=== PATIENT | male | born 1990 | race African-American/Black ===

== ENCOUNTER 2019-05-26 02:15 | Observation (INO) | payer OTHER ==
[2019-05-26] MEDS ORDERED: Acetaminophen 325 MG TAB PO PRN (03:13)
[2019-05-26] MEDS ORDERED: Acetaminophen 650 MG Suppository PR PRN (03:13)
[2019-05-26 03:36] VITALS: BMI 24.3
--- NOTE | 2019-05-26 03:55 | HP ---
CHIEF COMPLAINT: Altered mentation. The patient is a transfer from [facility] for Neurology consultation. 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 History obtained from the mother at the bedside. The patient has been getting agitated over the last 1 week and has not been sleeping well. Over the last 24 hours, his symptoms got worsen. There is no fever or chills reported. No recent fall or injuries reported. He is compliant with all of his medications. He is followed by a psychiatrist at [place]. In the emergency room, his vital signs showed temperature of 98.4, respirations of 18, pulse rate of 106, with blood pressure of 173/60 with O2 saturation 99% on room air. He received multiple medications including Ativan 2 mg IM, Benadryl 50 mg IM, Haldol 5 mg IM, Ativan 1 mg IV, Geodon 20 mg IM, repeat Ativan 1 mg IV, fentanyl 50 mcg IV with a repeat dose of 50 mcg IV within 1 hour, trazodone 50 mg, repeat dose of Ativan 2 mg, fentanyl 50 mcg, and trazodone 50 mg in the emergency room. He was transferred to this facility for Neurology consultation. PAST MEDICAL HISTORY: 1. alcohol syndrome causing severe mental retardation. 2. Seizure disorder. 3. Depression. 4. Glaucoma, followed by Dr. Key. The patient is blind in the right eye. 5. Seizure disorder. PAST SURGICAL HISTORY: 1. Adenoidectomy. 2. Tongue clipping. ALLERGIES: NO KNOWN DRUG ALLERGIES. CURRENT HOME MEDICATIONS: 1. Trazodone 100 mg two tablets at bedtime. 2. Diazepam as needed. 3. Seroquel 800 mg at bedtime. 4. Paxil 20 mg daily. 5. Temazepam as needed. 6. Oxcarbazepine 600 mg two tablets in p.m. SOCIAL HISTORY: The patient currently lives at home with his parents. No smoking, alcohol, or drug use. FAMILY HISTORY: Negative for heart disease. REVIEW OF SYSTEMS: Cannot be obtained from the patient due to current cognitive status. PHYSICAL EXAMINATION: VITAL SIGNS: As discussed above. GENERAL: A 29-year-old male with agitation. Sitter at the bedside. He was able to untie the soft restraint. Please note that the patient is extremely agitated and physical examination is difficult despite restraint. HEENT: Head, atraumatic and normocephalic. The patient was unable to open his mouth. NECK: Supple. No JVD. No carotid bruit. LUNGS: Clear to auscultation bilaterally. No wheezing, rales, or rhonchi. HEART: S1 and S2 present. Regular rate and rhythm. No rubs or gallops. ABDOMEN: Soft. Bowel sounds present. No rebound or guarding. EXTREMITIES: No edema or calf tenderness. NEUROLOGIC: As discussed above. The patient is spontaneously moving all of his extremities. PSYCHIATRIC: As discussed above. SKIN: Warm and dry. LYMPH NODES: No palpable lymph nodes in the neck. PERIPHERAL VASCULAR: Radial pulses palpable bilaterally. MUSCULOSKELETAL: No joint swelling tenderness. LABORATORY FINDINGS: 1. CBC showed WBC 3.5 with hemoglobin 8.9, hematocrit 28.9, platelet 289. Chemistry showed sodium 133, potassium 4.9, chloride 99, bicarb of 29, BUN of 9, and creatinine 0.7. 2. Bilirubin was 0.1. 3. Urinalysis was negative. 4. Urine drug screen was positive for benzodiazepines and tricyclics. 5. TSH was 1.43. 6. CT scan of the brain was negative for acute findings. 7. EKG by my review showed sinus rhythm with first-degree AV block, corrected QT interval was 434 milliseconds. IMPRESSION: 1. Encephalopathy suspected secondary to underlying mental retardation. 2. Seizure disorder. 3. Anxiety. 4. Glaucoma. 5. History of mental retardation secondary to alcohol syndrome. PLAN: The patient will be monitored as a 23-hour observation. He has been transferred to this facility for Neurology eval. Neurology will be consulted. We will resume his home medications. We will continue restraint due to significant agitation. Sitter will be arranged. The family is at the bedside as well. We will administer one dose of Geodon to calm him down. We will also resume Seroquel and temazepam. We will consult [employer] when medically stable. He has pulled his IV access as well. We will start IV fluids if he is not tolerating p.o. The mother understands the above plan of care. Job ID: [id number]
[2019-05-26] MEDS ORDERED: Sterile Water 10 ML VIAL FS PRN (04:26)
[2019-05-26] MEDS ORDERED: Ziprasidone 20 MG VIAL IM SCH (04:30)
[2019-05-26] MEDS ORDERED: Temazepam 15 MG CAP PO SCH (04:30)
[2019-05-26 07:05] VITALS: BP 143/95
[2019-05-26] MEDS ORDERED: FLU VACC QS2019-20(6MOS UP)/PF 60 MCG/0.5 ML SYRINGE IM ONE (09:00)
[2019-05-26] MEDS ORDERED: Temazepam 15 MG CAP PO PRN (11:58)
--- NOTE | 2019-05-26 13:26 | CON ---
DATE OF CONSULTATION: 05/26/2019 CHIEF COMPLAINT: Altered mental status. HISTORY OF PRESENT ILLNESS: We have been trying to communicate with Dr. Lewis about the specific issues regarding consultation for this patient, but from nursing notes as well as from the chart, it appears the patient has severe mental retardation due to alcohol syndrome and has seizure disorder. He was brought in with worsening of his mental status, but per nursing staff, the patient has not slept in about a week and he has been agitated. There is no recent fever or chills. He has a psychiatrist in [place]. He is compliant. His mother gives him all his medications on time. PREVIOUS MEDICAL HISTORY: Consistent with alcohol syndrome with severe mental retardation, seizure disorder, depression, glaucoma. PAST SURGICAL HISTORY: Adenoidectomy and tongue clipping. ALLERGIES: NO KNOWN DRUG ALLERGIES. MEDICATIONS: At home include; 1. Trazodone. 2. Valium. 3. Seroquel 800 mg at bedtime. 4. Paxil and temazepam as needed. 5. Oxcarbazepine. SOCIAL HISTORY: Lives with parents at home. FAMILY HISTORY: Negative for similar illness. REVIEW OF SYSTEMS: Unobtainable. LABORATORY DATA: Lab workup ; no current labs, but his most recent lab workup was from 2017, which cannot be interpreted. He is pending labs at the time of my visit. No imaging studies are also available. PHYSICAL EXAMINATION: VITAL SIGNS: Temperature 96.3, blood pressure recordings were difficult to obtain first, but there is one reading in the chart, 143/95. GENERAL APPEARANCE: Well-built, well-nourished man who keeps saying he needs to go to the bathroom and he is in restraints bilaterally. He is moving constantly making it difficult to examine him or auscultate his chest. IMPRESSION: The patient is a 29-year-old man with history of alcohol syndrome and severe mental retardation. Based on his chart, he has not been sleeping for 1 week and his mental status worsened with increasing agitation, which can be seen with lack of sleep in such patients. At this time, he is not on Seroquel. RECOMMENDATIONS: Consider restarting Seroquel. Consider psychiatric evaluation. The patient may need to be inpatient in Psychiatry, so he can be allowed to sleep for a while and wake up and be back to baseline. I am unable to provide any additional recommendations at this time other than stating please consult Psychiatry. Job ID: [id number]
--- NOTE | 2019-05-26 14:26 | RAD ---
RADIOGRAPH CHEST 1 VIEW: DATE: 05/26/2019 HISTORY: 29-year-old male with altered mental status. Concern for aspiration. FINDINGS: There is no airspace density, pulmonary edema, or pneumothorax. The lateral costophrenic angles are n ot effaced. Lungs are hypoinflated. IMPRESSION: No acute pulmonary findings.
[2019-05-26] MEDS ORDERED: PERPHENAZINE PO SCH (15:00)
[2019-05-26] MEDS: Perphenazine 2 MG TAB PO SCH ×2 (16:00→23:40)
[2019-05-26] MEDS ORDERED: Diazepam 5 MG TAB PO SCH ×2 (16:45→21:00)
[2019-05-26] MEDS ORDERED: Diazepam 5 MG TAB PO PRN (17:25)
[2019-05-26] MEDS ORDERED: traZODone HCl 50 MG TAB PO SCH ×2 (21:00)
[2019-05-26] MEDS ORDERED: OXcarbazepine 300 MG TAB PO SCH ×3 (21:00)
[2019-05-27 05:03] LABS: Anion Gap 12 mmol/L (10-20); BUN (Urea Nitrogen) 6 mg/dL (8.9-20.6); Calc. Creatinine Clearance 168 mL/min (70-130); Carbon Dioxide 26 mmol/L (22-29); Chloride 100 mmol/L (98-107); Estimated GFR-MDRD Greater than 90; Glucose 83 mg/dL (70-105); Magnesium 2.1 mg/dL (1.6-2.6); Potassium 4.3 mmol/L (3.5-5.1); Sodium 134 mmol/L (136-145)
[2019-05-27 05:46] LABS: #Eosinphils 0.1 thou/uL (0.0-0.7); #Lymphocytes 1.3 thou/uL (1.20-3.40); #Monocytes 0.4 thou/uL (0.11-0.59); #Neutrophils 2.2 thou/uL (1.40-6.50); %Basophils 1.1 % (0.0-1.0); %Eosinophils 1.4 % (0.0-10.0); %Lymphocytes 33.1 % (21.0-51.0); %Monocytes 9.3 % (0.0-10.0); Anisocytosis SLIGHT = 6-15 cells (100X) (0-5/hpf); Elliptocytes SLIGHT = 2-5 cells (100X) (0-1/hpf); Hemoglobin 10.9 g/dL (14.0-18.0); MDiff Complete? YES; Mean Corpuscular HGB CONC 29.8 g/dL (32.0-36.0); Mean Corpuscular Hemoglobin 18.9 pg (27.0-31.0); Mean Corpuscular Volume 63.4 fL (78.0-98.0); Mean Platelet Volume 6.9 fL (7.4-10.4); Microcytosis MODERATE=15-30 cells (100X) (0-5/hpf); Platelet Count 267 thou/uL (130-400); Platelet Morphology Comment Appears Adequate; RBC Distribution Width 19.3 % (11.5-14.5); Red Blood Cell (RBC) Count 5.74 mill/uL (4.70-6.10); Reflex for Review?? YES; White Blood Cell (WBC) Count 4.1 thou/uL (4.8-10.8)
[2019-05-27] MEDS ORDERED: PARoxetine 20 MG TAB PO SCH (09:00)
[2019-05-27] MEDS ORDERED: Perphenazine 2 MG TAB PO SCH (09:00)
[2019-05-27] MEDS ORDERED: OXcarbazepine 300 MG TAB PO SCH (09:00)
--- NOTE | 2019-05-27 10:08 | PDOC.HOSPP ---
- Subjective Encounter Date: 05/27/19 Encounter Time: 11:30 Subjective: Patient unchanged overnight. Mostly just says "I need to go to the bathroom" again and again. Curses sometimes per nursing staff. No BM since arrival. Good UOP in diapers since arrival. - Objective Vital Signs & Weight: Vital Signs (12 hours) Temp 05/27/19 08:18 97.5 F L 05/27/19 03:25 99.0 F 05/26/19 23:00 98.8 F Weight Admit Weight 169 lb 14.4 oz Weight 169 lb 9.6 oz I&O: 05/26/19 05/27/19 05/28/19 06:59 06:59 06:59 Intake Total 240 Output Total 0 Balance 240 Result Diagrams: 05/27/19 04:18 05/27/19 04:18 Hospitalist ROS - Review of Systems ROS unobtainable: due to mental status - Medication Medications: Active Medications Generic Name Dose Route Start Last Admin Trade Name Freq PRN Reason Stop Dose Admin Oxcarbazepine 600 mg 05/26/19 21:00 05/26/19 23:40 Trileptal PO 600 mg HS BRADLEY Administration Perphenazine 4 mg 05/26/19 15:00 05/26/19 23:40 Trilafon PO 4 mg TID BRADLEY Administration Trazodone HCl 50 mg 05/26/19 21:00 05/26/19 23:40 Desyrel PO 50 mg HS BRADLEY Administration - Exam General Appearance: awake alert ENT: moist mucosa Heart: RRR, no murmur, no gallops, no rubs Respiratory: CTAB, no wheezes, no rales, no ronchi Gastrointestinal: soft, non-tender, non-distended, normal bowel sounds Gastrointestinal - other findings: rectal exam with moderate richelle like stool, no hard impaction Extremities: no cyanosis, no clubbing, no edema Neurological - other findings: moving all extremities Psychiatric - other findings: occassionally follows commands, jack if told he will get maori fries Hosp A/P (1) AMS (altered mental status) Code(s): R41.82 - ALTERED MENTAL STATUS, UNSPECIFIED Status: Acute (2) alcohol syndrome Code(s): Q86.0 - ALCOHOL SYNDROME (DYSMORPHIC) Status: Chronic (3) Seizure disorder Code(s): G40.909 - EPILEPSY, UNSP, NOT INTRACTABLE, WITHOUT STATUS EPILEPTICUS Status: Chronic (4) Anxiety Code(s): F41.9 - ANXIETY DISORDER, UNSPECIFIED Status: Chronic (5) Glaucoma Code(s): H40.9 - UNSPECIFIED GLAUCOMA Status: Chronic - Plan Appreciate neurology consultation. No structural, infectious, or metabolic source to agitation discovered. Likely due to sleep disturbance per neurology. Will restart Seroquel. [facility]. Suspect that they won't be able to take him due to his mental age. Likely back home with Mother. Will try an enema in the hospital to see if having a good BM will improve his symptoms.
[2019-05-27] MEDS: Perphenazine 2 MG TAB PO SCH ×2 (10:32→13:53)
[2019-05-27] MEDS ORDERED: Fleet Enema 133 ML BOT PR SCH (11:45)
[2019-05-27] MEDS ORDERED: Polyethylene Glycol 3350 17 GM Packet PO SCH (11:45)
[2019-05-27] MEDS ORDERED: Senokot 8.6 MG TAB PO SCH (11:45)
[2019-05-27] MEDS ORDERED: Diazepam 5 MG TAB PO SCH (12:00)
[2019-05-27 15:24] VITALS: TEMP 97.7
[2019-05-27] MEDS ORDERED: Senokot S 8.6-50 MG TAB PO SCH (21:00)
--- NOTE | 2019-05-28 02:59 | DIS ---
DATE OF ADMISSION: 05/26/2019 DATE OF DISCHARGE: 05/27/2019 PRIMARY CARE PHYSICIAN: Pam Dunaway. REASON FOR ADMISSION: Altered mental status. DIAGNOSES AT DISCHARGE: 1. Altered mental status secondary to alcohol syndrome and mental retardation. 2. Seizure disorder. 3. Anxiety. 4. Glaucoma with blindness. 5. Possible constipation. PROCEDURES: None. CONSULTATIONS: Neurology, Dr. Lew. SUMMARY OF HOSPITAL COURSE: This is a 29-year-old male with history of severe mental retardation, 1-year-old mental capacity with alcohol syndrome and seizure disorder. He was brought into the [facility] Emergency Room by the mother after noting increasing agitation over the last week, not sleeping very well, and keeping overnight. He had been complaining about wanting to go to the bathroom more, being a little more aggressive. Mom has 24-hour care for him at home. In the ER, there, he was given quite a lot of medications including Ativan, Geodon, Haldol, trazodone, and fentanyl, but due to his agitation, he had a negative CT scan at that time. His blood work was negative and he was transferred here for neurologic evaluation. At our hospital, Dr. Lew was consulted. She determined that the patient's problems were not due to a primarily medical problem, that it was more related to disturbances in his sleep and his underlying mood and developmental disorders and recommended psychiatric followup. The patient did complain about wanting to go to the bathroom a lot here. His mom states that because he has been restrained here and usually tries to go to the bathroom by himself at home, will crawl around and find the bathroom. She did state that he has been having bowel movements regularly at home and she has not noticed any constipation; however, he has not had bowel movement here. I did do a rectal exam in the hospital here and he had some moderate amount of richelle-like stool, though no actual impaction. He was given some laxatives here. He has been without any distress, and we did have [facility] come and evaluate him. They stated due to his mental age of 21 years old that he is not a candidate for any sort of inpatient treatment and recommended following up with a psychiatrist outpatient at his scheduled appointment next week. I did discuss this plan with his mother and she was comfortable taking him home. DISCHARGE MANAGEMENT: Discharged home. FOLLOWUP: Follow up with Dr. Peguero, the psychiatrist in one week as scheduled. ACTIVITY: As tolerated. DIET: Regular diet. DISCHARGE MEDICATIONS: Resume all home medications. 1. Valium 5 mg at noon and 10 mg twice a day as previously directed. 2. Temazepam 30 mg at night. 3. Trileptal 600 mg at night and 300 mg in the morning. 4. Perphenazine 4 mg 3 times a day. 5. Seroquel 400 mg 2 tablets at night. 6. Trazodone 50 mg at night. Job ID: [id number]
[2019-05-28] MEDS ORDERED: Polyethylene Glycol 3350 17 GM Packet PO SCH (09:00)
== END 2019-05-27 18:05 | disposition home or self-care (01) ==
LOC: IMCU/EMU 02:25
PROVIDERS: ADMIT Internal Medicine; ATTEND Internal Medicine
DX: Q86.0 Fetal alcohol syndrome (dysmorphic) (principal); F79 Unspecified intellectual disabilities; G93.40 Encephalopathy, unspecified; G40.909 Epilepsy, unspecified, not intractable, without status epilepticus; H40.9 Unspecified glaucoma; H54.61 Unqualified visual loss, right eye, normal vision left eye; F32.9 Major depressive disorder, single episode, unspecified; Z79.899 Other long term (current) drug therapy
CPT/HCPCS: 36415; 71045; 80048; 83735; 85025; 85060; 96372; G0378; J3486; Q0175

== ENCOUNTER 2023-09-03 23:28 | Emergency (ER) | payer OTHER ==
[2023-09-04 00:13] LABS: Bilirubin Negative (Negative); Blood, Urine Negative (Negative); Glucose, Urine (Dipstick) Negative (Negative); Ketone, Urine Negative (Negative); Leukocyte Negative (Negative); Nitrite Negative (Negative); Protein, Urine (Dipstick) Negative (Neg-Trace); Specific Gravity, Urine 1.015 (1.005-1.030); pH, Urine 7.5 (5.0-9.0)
[2023-09-04 00:14] LABS: Clarity Clear (Clear)
[2023-09-04 00:15] LABS: Bacteria/HPF None Seen HPF (None Seen); CAUTI Indications for Culture Alt mental st,lethar; RBC/HPF 0-3 HPF (0-3); Squamous Epithelial None Seen HPF (0-3); WBC/HPF 0-3 HPF (0-3)
[2023-09-04 00:18] LABS: Urine Culture Reflex No No
[2023-09-04 00:22] LABS: Amphetamine Not Detected (NotDetected); Barbiturates Screen Not Detected (NotDetected); Benzodiazepine Screen Detected (NotDetected); Cocaine Metabolite Screen Not Detected (NotDetected); Methadone Not Detected (NotDetected); Methamphetamine Not Detected (NotDetected); Opiate Screen Not Detected (NotDetected); Oxycodone Screen Not Detected (NotDetected); Phencyclidine (PCP) Not Detected (NotDetected); THC/Cannabinoid Screen Not Detected (NotDetected); Tricyclic Screen Detected (NotDetected)
[2023-09-04 00:33] LABS: #Basophils Less than 0.03 10x3/uL (0.0-0.2); %Basophils 0.4 % (0.0-1.0); %Eosinophils 1.3 % (0.0-10.0); %Lymphocytes 42.8 % (21.0-51.0); %Monocytes 8.2 % (0.0-10.0); %Neutrophils 46.6 % (42.0-75.0); Hematocrit 36.6 % (42.0-52.0); Hemoglobin 12.6 g/dL (14.0-18.0); Mean Corpuscular HGB CONC 34.4 g/dL (32.0-36.0); Mean Corpuscular Hemoglobin 29.6 pg (27.0-31.0); Mean Corpuscular Volume 86.1 fL (78.0-98.0); Platelet Count 236 10x3/uL (130-400); RBC Distribution Width 13.2 % (11.5-14.5); Red Blood Cell (RBC) Count 4.25 mill/uL (4.70-6.10)
[2023-09-04 00:36] LABS: Actual Bicarbonate (HCO3v) 22.7 mEq/L (22-28); Base Excess -0.2 mEq/L (-2.0 to +3.0); Calcium, Ionized (venous) 1.06 mmol/L (1.16-1.32); Chloride (VBG) 104 mmol/L (98-106); Hematocrit-VBG 39 % (42.0-52.0); Hemoglobin (Hb) 13.2 g/dL (13.2-17.3); Potassium (VBG) 4.75 mmol/L (3.70-5.30); Sodium 139 mmol/L (133-146); pH (venous) 7.468 (7.32-7.43)
[2023-09-04 00:50] LABS: ALT (SGPT) 40 U/L (8-55); AST (SGOT) 83 U/L (5-34); Albumin 3.7 g/dL (3.5-5.0); Alkaline Phosphatase 59 U/L (40-110); Anion Gap 14 mmol/L (10-20); BUN (Urea Nitrogen) 6 mg/dL (8.9-20.6); Bilirubin, Total 0.4 mg/dL (0.2-1.2); Calc. Creatinine Clearance 0 mL/min (70-130); Calcium 9.5 mg/dL (7.8-10.44); Carbon Dioxide 26 mmol/L (22-29); Chloride 104 mmol/L (98-107); Estimated GFR 122; Globulin 3.6 g/dL (2.4-3.5); Glucose 72 mg/dL (70-105); Potassium 4.6 mmol/L (3.5-5.1); Protein, Total 7.3 g/dL (6.0-8.3); Sodium 139 mmol/L (136-145)
[2023-09-04 00:52] LABS: Acetaminophen Less than 10 mcg/mL (10.0-30.0); Alcohol Less than 10.0 mg/dL (Less than 10); Salicylate Less than 8.0 mg/dL (15.0-30.0)
[2023-09-04 00:55] LABS: Troponin I Less than 0.010 ng/mL (< 0.028)
[2023-09-04] MEDS ORDERED: traZODone HCl 50 MG TAB ONE (02:27)
== END 2023-09-04 02:37 | disposition home or self-care (01) ==
LOC: ERS 23:28
DX: R45.1 Restlessness and agitation (principal); G47.9 Sleep disorder, unspecified; F84.0 Autistic disorder
CPT/HCPCS: 51701; 70450; 71045; 80053; 80306; 80307; 81001; 82805; 83605; 83735; 83880; 84484; 85025; 93005; 94760

== ENCOUNTER 2023-12-07 01:59 | Emergency (ER) | payer OTHER ==
[2023-12-07] MEDS ORDERED: KETAMINE 100 MG/ML (5ML VIAL) ONE ×2 (02:05→02:37)
[2023-12-07] MEDS ORDERED: Midazolam HCl 2 mg/2 ml Vial ONE (02:22)
[2023-12-07] MEDS ORDERED: Ondansetron PF 4 MG/2 ML Vial ONE (02:40)
== END 2023-12-07 06:00 | disposition home or self-care (01) ==
LOC: ERS 01:59
DX: S01.312A Laceration without foreign body of left ear, initial encounter (principal); X58.XXXA Exposure to other specified factors, initial encounter
CPT/HCPCS: J2250; J2405